=== PATIENT | male | born 1950 | race Caucasian/White ===

== ENCOUNTER → 2016-11-29 | Outpatient (REF) | LOC: ZLAB.WCH 10:26 | DX: Z01.89 Encounter for other specified special examinations (principal) | CPT/HCPCS: G0103 ==

== ENCOUNTER → 2017-01-24 | Outpatient (REF) | LOC: COL.CARD 10:53 | DX: Z01.89 Encounter for other specified special examinations (principal); I10 Essential (primary) hypertension; R07.9 Chest pain, unspecified ==

== ENCOUNTER → 2018-08-12 | Outpatient (REF) | LOC: ZLAB.WCH 16:08 | DX: Z01.89 Encounter for other specified special examinations (principal) | CPT/HCPCS: G0103 ==

== ENCOUNTER → 2018-08-22 | Outpatient (REF) | LOC: ZLAB.WCH 16:15 | DX: Z01.89 Encounter for other specified special examinations (principal) ==

== ENCOUNTER → 2020-05-28 | Outpatient (REF) | LOC: ZLAB.WCH 20:04 | DX: Z01.89 Encounter for other specified special examinations (principal) ==